=== PATIENT | male | born 1960 | race Caucasian/White ===

== ENCOUNTER 2018-08-01 09:42 | Day surgery (SDC) | payer OTHER ==
[2018-08-01] MEDS ORDERED: HEPARIN 1000 UNITS/ML 10 ML INJ (11:03)
[2018-08-01] MEDS ORDERED: FENTAnyl 50 MCG/ML VIAL (11:03)
[2018-08-01] MEDS ORDERED: LIDOCAINE 1% (MDV) 20 ML INJ (11:03)
[2018-08-01] MEDS ORDERED: IODIXANOL LOCM 100 ML BTL (11:03)
[2018-08-01] MEDS ORDERED: MIDAZOLAM 1 MG/ML 2 ML INJ (11:03)
[2018-08-01] MEDS ORDERED: VERAPAMIL 5 MG INJ (11:03)
[2018-08-01] MEDS ORDERED: NITROGLYCERIN (IC) 100 MCG/ML INJ (11:04)
[2018-08-01] MEDS ORDERED: ACETAMINOPHEN 325 MG TAB (11:58)
[2018-08-01] MEDS ORDERED: ACETAMINOPHEN 325 MG TAB PO (12:00)
[2018-08-01] MEDS ORDERED: morphine 2 MG INJ IV (12:00)
[2018-08-01] MEDS ORDERED: AL HYDROX/MG HYDROX/SIMETH 30 ML CUP PO (12:00)
[2018-08-01] MEDS ORDERED: ONDANSETRON 4 MG INJ IV (12:00)
[2018-08-01] MEDS: SOD CHLORIDE 0.9% 1,000 ML IV ×2 (12:58→13:01)
== END 2018-08-01 17:51 | disposition short-term general hospital (02) ==
LOC: SDS 09:42
DX: I25.10 Atherosclerotic heart disease of native coronary artery without angina pectoris (principal); I10 Essential (primary) hypertension; E78.5 Hyperlipidemia, unspecified; E11.9 Type 2 diabetes mellitus without complications
CPT/HCPCS: 82962; 93458